=== PATIENT | male | born 1960 | race Caucasian/White ===

== ENCOUNTER → 2019-06-26 | Outpatient (CLI) | payer MEDICARE ==
--- NOTE | 2019-06-26 16:29 | Diagnostic Imaging Report ---
EXAM: LUMBAR SPINE 2 OR 3 VIEW. INDICATION: Low back pain radiating to both lower extremities. COMPARISON: None. FINDINGS: There are five lumbar-type vertebral bodies. Interbody device at L4-L5. Normal alignment. Vertebral body heights are preserved. No fracture is identified. The visualized pelvis is intact. IMPRESSION: 1. Interbody fusion at L4-L5. 2. No acute radiographic findings in the lumbar spine. Dictated by: Dictated on workstation # [id number]
== END ==
LOC: RAD FS 15:23
PROVIDERS: ATTEND Family Medicine
DX: M43.26 Fusion of spine, lumbar region (principal)
CPT/HCPCS: 72100